=== PATIENT | male | born 1970 ===

== ENCOUNTER 2019-07-20 14:21 | Outpatient (CLI) | payer OTHER | END 2019-07-20 14:22 | disposition home or self-care (01) | LOC: SONOGRAMA 14:21 | DX: M54.5 Low back pain (principal); R30.0 Dysuria ==

== ENCOUNTER 2019-07-25 10:40 | Outpatient (CLI) | payer OTHER | END 2019-07-25 10:42 | disposition home or self-care (01) | LOC: TOM 10:40 | DX: N20.1 Calculus of ureter (principal) ==

== ENCOUNTER → 2019-07-25 11:37 | Outpatient (CLI) | payer OTHER | END | disposition home or self-care (01) | LOC: LAB 11:37 | DX: N20.1 Calculus of ureter (principal) ==

== ENCOUNTER → 2021-08-19 07:27 | Outpatient (CLI) | payer OTHER | END | disposition home or self-care (01) | LOC: LAB 07:27 | PROVIDERS: ATTEND General Practice | DX: K76.0 Fatty (change of) liver, not elsewhere classified (principal); I10 Essential (primary) hypertension; Z11.3 Encounter for screening for infections with a predominantly sexual mode of transmission; Z00.01 Encounter for general adult medical examination with abnormal findings; Z12.11 Encounter for screening for malignant neoplasm of colon; Z13.228 Encounter for screening for other metabolic disorders; Z13.220 Encounter for screening for lipoid disorders; Z13.0 Encounter for screening for diseases of the blood and blood-forming organs and certain disorders involving the immune mechanism; Z13.29 Encounter for screening for other suspected endocrine disorder; Z13.1 Encounter for screening for diabetes mellitus; Z12.5 Encounter for screening for malignant neoplasm of prostate; Z68.34 Body mass index [BMI] 34.0-34.9, adult; M54.59 Other low back pain; E66.8 Other obesity; N20.0 Calculus of kidney; R10.84 Generalized abdominal pain ==

== ENCOUNTER 2021-08-19 08:32 | Outpatient (CLI) | payer OTHER | END 2021-08-19 08:45 | disposition home or self-care (01) | LOC: SONOGRAMA 08:32 → RAD 08:32 → SONOGRAMA 08:45 | PROVIDERS: ATTEND General Practice | DX: R10.84 Generalized abdominal pain (principal); N20.0 Calculus of kidney; I10 Essential (primary) hypertension; Z00.01 Encounter for general adult medical examination with abnormal findings; Z11.3 Encounter for screening for infections with a predominantly sexual mode of transmission; Z11.4 Encounter for screening for human immunodeficiency virus [HIV]; Z12.11 Encounter for screening for malignant neoplasm of colon; Z13.228 Encounter for screening for other metabolic disorders; Z13.220 Encounter for screening for lipoid disorders; Z13.0 Encounter for screening for diseases of the blood and blood-forming organs and certain disorders involving the immune mechanism; Z13.1 Encounter for screening for diabetes mellitus; Z12.5 Encounter for screening for malignant neoplasm of prostate; Z68.34 Body mass index [BMI] 34.0-34.9, adult; M54.59 Other low back pain; E66.9 Obesity, unspecified ==

== ENCOUNTER 2021-10-09 10:14 | Outpatient (CLI) | payer OTHER | END 2021-10-09 10:30 | disposition home or self-care (01) | LOC: RAD 10:14 | PROVIDERS: ATTEND Specialist | DX: N20.0 Calculus of kidney (principal); G89.18 Other acute postprocedural pain ==

== ENCOUNTER 2023-03-15 06:44 | Outpatient (CLI) | payer OTHER | END 2023-03-15 06:45 | disposition home or self-care (01) | LOC: LAB 06:44 | PROVIDERS: ATTEND General Practice | DX: R09.81 Nasal congestion (principal); E66.9 Obesity, unspecified; Z12.5 Encounter for screening for malignant neoplasm of prostate; Z13.220 Encounter for screening for lipoid disorders; Z13.228 Encounter for screening for other metabolic disorders; Z12.11 Encounter for screening for malignant neoplasm of colon ==

== ENCOUNTER 2023-03-15 07:20 | Outpatient (CLI) | payer OTHER | END 2023-03-15 07:29 | disposition home or self-care (01) | LOC: SONOGRAMA 07:20 | PROVIDERS: ATTEND General Practice | DX: K76.0 Fatty (change of) liver, not elsewhere classified (principal); Z12.11 Encounter for screening for malignant neoplasm of colon; R09.81 Nasal congestion; E66.9 Obesity, unspecified; Z12.5 Encounter for screening for malignant neoplasm of prostate; Z13.220 Encounter for screening for lipoid disorders; Z13.228 Encounter for screening for other metabolic disorders ==

== ENCOUNTER 2024-07-24 09:33 | Outpatient (CLI) | payer OTHER | END 2024-07-24 09:35 | disposition home or self-care (01) | LOC: MRI 09:33 | PROVIDERS: ATTEND General Practice | DX: R52 Pain, unspecified (principal); M54.9 Dorsalgia, unspecified | CPT/HCPCS: 72146 ==

== ENCOUNTER 2024-07-25 07:10 | Outpatient (CLI) | payer OTHER ==
[2024-07-25 08:17] LABS: HEMATOCRIT 44.6 % (39.0-48.0); HEMOGLOBIN 15.2 g/dL (13-16.00); MEAN CELL VOLUME 84.3 fL (80.0-100.00); MEAN CORPUSCULAR HEMOGLOBIN 28.8 pg (27.00-32.0); MEAN CORPUSCULAR HGB CONC 34.2 g/dl (32.0-36.0); PLATELET COUNT 143 K/uL (150-450); RED BLOOD COUNT 5.28 M/uL (4.00-6.00)
[2024-07-25 08:53] LABS: ALBUMIN 3.8 gm/dL (3.4-5.0); BILIRUBIN TOTAL 0.43 mg/dL (0.3-1.2); CHOL HDL RATIO 3.7 (0-5.0); CREATININE SERUM 1.08 mg/dL (0.70-1.30); GFR 71.52; GLOBULINA 3.1 G/DL (2.4-3.5); POTASSIUM 4.68 mEq/L (3.5-5.1); PROSTATIC SPECIFIC ANTIGEN 3.03 NG/ML (0.010-4.00); T4 FREE 0.89 NG/ML (0.76-1.46); TOTAL PROTEIN 6.9 gm/dL (6.4-8.2); TSH 2.35 uIU/mL (0.358-3.74)
[2024-07-25 08:57] LABS: URINE APPEARANCE CLEAR; URINE BACTERIA 0 uL (0.0-1933); URINE COLOR YELLOW; URINE EPITHELIAL CELLS 0.6 uL (0.0-38.8); URINE RBC 0.3 uL (0.0-20.8); URINE WBC 1.6 uL (0.0-23.2)
[2024-07-25 08:58] LABS: PH,URINE 6.5; URINE BILIRRUBIN NEGATIVE (NEGATIVE); URINE BLOOD NEGATIVE; URINE GLUCOSE NEGATIVE (NEGATIVE); URINE KETONE NEGATIVE (NEGATIVE); URINE LEUKOCYTE NEGATIVE; URINE NITRATE NEGATIVE; URINE PROTEIN NEGATIVE (NEGATIVE); URINE UROBILINOGEN 0.2 E.U./dl
[2024-07-25 10:10] LABS: ob POSITIVE (NEGATIVE)
== END 2024-07-25 07:22 | disposition home or self-care (01) ==
LOC: RAD 07:10
PROVIDERS: ATTEND General Practice
DX: M54.9 Dorsalgia, unspecified (principal); R52 Pain, unspecified; Z13.1 Encounter for screening for diabetes mellitus; Z13.220 Encounter for screening for lipoid disorders; Z13.228 Encounter for screening for other metabolic disorders; Z12.5 Encounter for screening for malignant neoplasm of prostate; Z12.11 Encounter for screening for malignant neoplasm of colon; R05.9 Cough, unspecified; R06.02 Shortness of breath